=== PATIENT | male | born 1950 | race Caucasian/White ===

== ENCOUNTER 2017-03-11 13:44 | Outpatient (CLI) | payer MEDICARE, OTHER ==
[2017-03-11 14:59] LABS: Hematocrit 41.8 % (42.0-52.0); Mean Platelet Volume 7.4 fL (7.4-10.4); Red Blood Cell (RBC) Count 4.52 mill/uL (4.70-6.10); White Blood Cell (WBC) Count 5.8 thou/uL (4.8-10.8)
[2017-03-11 15:06] LABS: PTT 29.8 SEC (22.9-36.1); Prothrombin Time 13.3 SEC (12.0-14.7)
[2017-03-11 15:21] LABS: Anion Gap 10 mmol/L (10-20); BUN (Urea Nitrogen) 25 mg/dL (8.4-25.7); Calc. Creatinine Clearance 0 mL/min (70-130); Calcium 9.2 mg/dL (7.8-10.44); Carbon Dioxide 24 mmol/L (23-31); Chloride 108 mmol/L (98-107); Estimated GFR-MDRD 63
[2017-03-11 15:25] LABS: Bilirubin Negative (Negative); Blood, Urine Negative (Negative); Glucose, Urine (Dipstick) Negative (Negative); Ketone, Urine Trace mg/dL (Negative); Nitrite Negative (Negative); Protein, Urine (Dipstick) Negative (Neg-Trace)
[2017-03-11 15:29] LABS: Bacteria/HPF None Seen HPF (None Seen); Hyaline Casts/LPF 0-3 HYALINE CAST LPF (0-3 Hyaline); RBC/HPF 0-3 HPF (0-3); Squamous Epithelial 0-3 HPF (0-3)
[2017-03-11 15:47] LABS: Renal Epithelial None Seen HPF (0-3); Transitional Epithelial NONE SEEN HPF (0-3)
== END 2017-03-11 13:45 | disposition home or self-care (01) ==
LOC: LABBT 13:44
PROVIDERS: ATTEND Urology
DX: Z01.818 Encounter for other preprocedural examination (principal)
CPT/HCPCS: 80048; 81001; 85027; 85610; 85730; 87086; 93005; 93010

== ENCOUNTER 2017-03-20 07:21 | Inpatient (IN) | payer MEDICARE, OTHER ==
[2017-03-20] MEDS ORDERED: Levofloxacin 500 mg/D5W 100 ml Premix Bag ONE (08:07)
[2017-03-20] MEDS ORDERED: Fentanyl 100 MCG/2 ML VIAL ONE ×3 (09:28→11:28)
[2017-03-20] MEDS ORDERED: Promethazine HCl 25 MG/ML VIAL SLOW IVP PRN (11:09)
[2017-03-20] MEDS ORDERED: Ondansetron HCl/PF 4 MG/2 ML Vial IVP PRN ×2 (11:09→13:16)
[2017-03-20] MEDS ORDERED: Morphine Sulfate 2 MG/ML SYRINGE SLOW IVP PRN (11:09)
[2017-03-20] MEDS ORDERED: Meperidine HCl/PF 25 MG/ML VIAL SLOW IVP PRN (11:09)
[2017-03-20] MEDS ORDERED: Promethazine HCl 25 MG/ML VIAL IM PRN (11:09)
[2017-03-20] MEDS ORDERED: HYDROmorphone 2 MG/ML VIAL SLOW IVP PRN (11:09)
--- NOTE | 2017-03-20 11:20 | OP ---
DATE OF PROCEDURE: 03/20/2017 SERVICE: Urology. SURGEON: Jc Mcgowan M.D. PREOPERATIVE DIAGNOSIS: Benign prostatic hypertrophy. POSTOPERATIVE DIAGNOSIS: Benign prostatic hypertrophy. PROCEDURE PERFORMED: Transurethral vaporization of the prostate. INDICATIONS FOR PROCEDURE: Mr. Guevara is a 67-year-old white male, who is currently on Flomax and lizandro steride. He has relatively good control of the symptoms, but does not wish to remain on medications indefinitely. As such, he has elected to undergo a transurethral vaporization of prostate. Risks an d benefits of the surgery have been discussed and he has agreed to proceed forward. DESCRIPTION OF PROCEDURE: After identification of arm band and verification of consent, the patient was brought back to the operating room where he underwent general anesthesia with an LMA. He was the n placed in dorsal lithotomy position, prepped and draped in usual sterile fashion. After appropriat e time out, lubricated 26 Djiboutian obturator in outer sheath was placed through the urethra after dilat ing the meatus with Kelly sounds. The obturator was removed leaving the outer sheath in place an d the gyrus bipolar button was inserted through with the resectoscope through the outer sheath. Visu alization of the bladder and prostate did not reveal any injuries from the screen printing machine operator helper placement. The b ladder appeared unremarkable. Both ureters were in their orthotopic location. The ureters were morales ed medial and distal to their location for easier inspection later with coag function. Vaporization was begun on the lateral lobes and the median lobe of the prostate to the verumontanum. The vaporiza tion cutting function was used to vaporize all the tissue circumferentially until there was a wide op en prostatic fossa. The coagulation was used to extensively to cauterize any bleeding until the pros gary was totally hemostatic. The bladder neck was taken down at 5 and 7 o'clock to open up the bladd er neck and the intervening tissue that was exposed was vaporized using the cutting function. Upon f inal inspection, there was excellent hemostasis after cauterizing all bleeders. The resection was no t carried past the verumontanum. There did not appear to be any sphincteric or striated muscle. Car e was taken not to perform vaporization near the trigone. I felt satisfied with the vaporization and the prostate was wide open. Both ureters were in their orthotopic location unharmed. There were no chips to evacuate as the vaporization was carried out. The bladder was left full and the resectosco pe removed. A 22-Djiboutian three-way Dwyer catheter with 30 mL balloon was inserted with ease into the bladder, the balloon filled with sterile water and connected to a slow CBI. This catheter was secure d with a StatLock. Patient then awakened and taken to PACU for recovery in stable condition. COMPLICATIONS: None. ESTIMATED BLOOD LOSS: Minimal. RETAINED TUBES AND DRAINS: A 22-Djiboutian 3-way Dwyer catheter with 30 mL of sterile water in the ballo on. SPECIMENS: None. DISPOSITION: Patient will go to recovery and then be kept for 23-hour observation. He can undergo a voiding trial tomorrow and probably be discharged with his followup and handled on an outpatient bas is.
[2017-03-20] MEDS ORDERED: diphenhydrAMINE 25 MG CAP PO PRN (13:16)
[2017-03-20] MEDS ORDERED: traMADol HCl 50 MG TAB PO PRN (13:16)
[2017-03-20] MEDS ORDERED: hydrALAZINE 20 MG/ML VIAL SLOW IVP PRN (13:16)
[2017-03-20] MEDS ORDERED: Hyoscyamine Sulfate SL 0.125 mg Tablet SL PRN (13:16)
[2017-03-20] MEDS ORDERED: Oxybutynin 5 MG TAB PO PRN (13:16)
[2017-03-20] MEDS ORDERED: Mag-Al 1200 mg/1200 mg/30 ML UDCUP PO PRN (13:16)
[2017-03-20] MEDS ORDERED: Morphine 4 MG/ML VIAL SLOW IVP PRN (13:45)
[2017-03-20] MEDS ORDERED: Morphine 2 mg/2ml in 0.9% NaCl PF SYRINGE SLOW IVP PRN (13:45)
[2017-03-20] MEDS: traMADol HCl 50 MG TAB PO PRN ×2 (14:15→19:44)
[2017-03-20 17:00] VITALS: BMI 26.4
[2017-03-20] MEDS ORDERED: Dexamethasone 20 MG/5 ML VIAL ONE (17:24)
[2017-03-20] MEDS ORDERED: Propofol 200 MG/20 ML VIAL ONE (17:24)
[2017-03-20] MEDS ORDERED: Glycopyrrolate 0.2 MG/ML 5 ML SYRINGE ONE (17:24)
[2017-03-20] MEDS ORDERED: Lidocaine 1% PF 5 ML VIAL ONE (17:24)
[2017-03-20] MEDS ORDERED: Ondansetron HCl/PF 4 MG/2 ML Vial ONE (17:24)
[2017-03-20] MEDS ORDERED: Atenolol 25 MG TAB PO SCH (21:00)
[2017-03-20] MEDS ORDERED: FENOFIBRATE MICRONIZED 200 MG PO SCH ×2 (21:00)
[2017-03-20] MEDS ORDERED: Melatonin 3 MG TAB PO SCH (21:15)
[2017-03-20] MEDS: Docusate 100 MG CAP PO SCH (21:17)
[2017-03-20] MEDS: Venlafaxine HCl 25 MG TAB PO SCH (21:17)
[2017-03-21 05:38] LABS: #Basophils 0.1 thou/uL (0.0-0.2); #Eosinphils 0.2 thou/uL (0.0-0.7); #Lymphocytes 1.7 thou/uL (1.20-3.40); #Monocytes 0.9 thou/uL (0.11-0.59); %Basophils 0.7 % (0.0-1.0); %Eosinophils 2.2 % (0.0-10.0); %Monocytes 10.3 % (0.0-10.0); Hematocrit 38.4 % (42.0-52.0); Mean Platelet Volume 7.2 fL (7.4-10.4); Red Blood Cell (RBC) Count 4.09 mill/uL (4.70-6.10); White Blood Cell (WBC) Count 8.9 thou/uL (4.8-10.8)
[2017-03-21 06:12] LABS: Anion Gap 9 mmol/L (10-20); BUN (Urea Nitrogen) 16 mg/dL (8.4-25.7); Calc. Creatinine Clearance 0 mL/min (70-130); Calcium 9.2 mg/dL (7.8-10.44); Carbon Dioxide 25 mmol/L (23-31); Chloride 105 mmol/L (98-107); Estimated GFR-MDRD 67
[2017-03-21] MEDS: Venlafaxine HCl 25 MG TAB PO SCH (08:38)
[2017-03-21] MEDS: Docusate 100 MG CAP PO SCH (08:38)
[2017-03-21] MEDS ORDERED: Amlodipine 5 mg/Benazepril 10 mg CAP PO SCH (09:00)
[2017-03-21] MEDS ORDERED: Non-Formulary Item 1 EACH (Amlodipine Besylate/Benazepril [Amlodipine Besylate/Benazepril PO SCH (09:00)
[2017-03-21] MEDS: Phenazopyridine HCl 97.5 MG TABLET PO SCH ×2 (11:57)
[2017-03-21 12:32] VITALS: BP 157/89; TEMP 97.8
--- NOTE | 2017-03-21 15:37 | PRG ---
DATE OF SERVICE: 03/21/2017 SUBJECTIVE: The patient states he is feeling fine. He has been up out of bed. He has not had much pain. His CBI has been turned off this morning and his urine is very clear. He denies any bladder s pasms, fevers or chills. OBJECTIVE: VITAL SIGNS: Temperature 97.8, pulse 49, respirations 17, blood pressure 157/89, saturation 97% on r oom air. GENERAL: No apparent distress, communicative and alert. CARDIOVASCULAR: Sinus bradycardia with normal rhythm. CHEST: Clear. ABDOMENK: Soft, nontender, nondistended, positive bowel sounds. EXTREMITIES: No clubbing, cyanosis, or edema. GENITOURINARY: Dwyer catheter is in place. Secured with clear yellow urine in the CBI off. Dwyer c atheter was removed. LABORATORY DATA: On laboratory evaluation, a full set of labs in the [facility] system, which I have r eviewed. Of note, the patient's white count is 8.9 with hemoglobin of 13.2. Creatinine is 1.1 with potassium of 3.4. Remainder of labs are in the [facility] system. ASSESSMENT AND PLAN: A 67-year-old white male with BPH and obstruction, status post transurethral va porization of his prostate postoperative day #1. He has some bradycardia, but is asymptomatic, menta ting well, has no dizziness or evidence of hypotension. I think he should be fine for him to go home , but I have told him he should probably follow up with his primary care physician for further evalua tion. From my standpoint, I went over his discharge instructions including activity limitations and his discharge medications. I will plan to see him back in 1 week for a postop check.
[2017-03-21] MEDS ORDERED: Melatonin 3 MG TAB PO SCH (21:00)
== END 2017-03-21 14:44 | disposition home or self-care (01) | DRG 713 ==
LOC: SDC 07:21 → SJJU 13:11
PROVIDERS: ADMIT Urology; ATTEND Urology
PROC: 0V507ZZ Destruction of Prostate, Via Natural or Artificial Opening (ICD-10-PCS; principal; 2017-03-20)
DX: N40.1 Benign prostatic hyperplasia with lower urinary tract symptoms (principal); N13.8 Other obstructive and reflux uropathy; I10 Essential (primary) hypertension; R00.1 Bradycardia, unspecified; E78.5 Hyperlipidemia, unspecified; Z87.891 Personal history of nicotine dependence
CPT/HCPCS: 36415; 80048; 85025; J1100; J1956; J2001; J2405; J2704; J3010

== ENCOUNTER 2017-08-11 13:37 | Outpatient (CLI) | payer MEDICARE, OTHER | END 2017-08-11 13:38 | disposition home or self-care (01) | LOC: BICCT 13:37 | PROVIDERS: ATTEND Family Medicine Sports Medicine | DX: M54.9 Dorsalgia, unspecified (principal); M48.061 Spinal stenosis, lumbar region without neurogenic claudication; Z98.1 Arthrodesis status | CPT/HCPCS: 72131 ==

== ENCOUNTER 2018-03-19 08:01 | Outpatient (CLI) | payer MEDICARE, OTHER ==
[2018-03-19] MEDS ORDERED: ISOVUE-370 76%-LOCM 1 ML ONE (10:48)
--- NOTE | 2018-03-19 10:57 | CT ---
CT ABDOMEN WITH CONTRAST CT PELVIS WITH CONTRAST: DATE: 03-19-18 TIME: 9:00 A.M. HISTORY: 68-year-old male with R30.0 dysuria, and R10.30 lower abdominal pain. COMPARISON: None TECHNIQUE: IV injection of iodinated contrast media: 70 ml of Isovue 370 Oral contrast media: Administered FINDINGS: No pneumoperitoneum, ascites, or pleural effusions. No consolidation at lung bases. Midline laminecto my defects, bilateral pedicle screws, and posterior onlay bone graft fusion, at multiple levels in th e lumbar spine. Cholecystectomy clips in the gallbladder fossa. Approximately 2.5 cm hepatic cyst in hepatic segment 2 of the left lobe of the liver. The liver is otherwise normal. No abdominal aortic a neurysm. Short, normal appendix. Sigmoid colonic diverticulosis without diverticulitis. No small kg l dilation. Two small calculi in right renal lower pole calices, on the order of 0.5 cm in size each. At least one tiny calculus in left renal upper pole, approximately 0.2 cm. No evidence of pyelonephr itis. No moderate sized or large solid or cystic renal mass. No hydronephrosis. Normal pancreas, sple en, and adrenals. No intrapelvic or intraabdominal suspicious lymphadenopathy. No gross pathology of the urinary bladder identified. IMPRESSION: 1. No acute findings. 2. Bilateral mild nephrolithiasis with a few renal calculi, a few millimeters in size each. 3. Extensive post-surgical changes of the lumbar spine. 4. Status post cholecystectomy. YESENIA Wong POS: BEL
== END 2018-03-19 08:02 | disposition home or self-care (01) ==
LOC: BICCT 08:01
PROVIDERS: ATTEND Physician Assistant
DX: R10.30 Lower abdominal pain, unspecified (principal); R30.0 Dysuria; N20.0 Calculus of kidney; Z90.49 Acquired absence of other specified parts of digestive tract; Z98.890 Other specified postprocedural states
CPT/HCPCS: 74177

== ENCOUNTER 2019-03-04 10:43 | Outpatient (CLI) | payer MEDICARE, OTHER ==
--- NOTE | 2019-03-04 11:30 | CT ---
ABDOMEN CT WITHOUT CONTRAST PELVIC CT WITHOUT CONTRAST: HISTORY: Renal calculi. Gross hematuria. Nephrolithiasis. COMPARISON: None. CORRELATION: Abdomen and pelvis CT 03/19/2018. FINDINGS: Abdomen CT: Lung bases:No suspicious masses or consolidation. Heart size: Normal heart size. No significant pericardial fluid. Aorta: Normal caliber. No periaortic fat stranding. Solid organs: Limited evaluation due to lack of intravenous contrast administration. Stable 2.2 x 2.9 cm left hepatic lobe cyst. Grossly no solid organ abnormality. Lymph nodes: No gastrohepatic, retrocrural or periportal lymphadenopathy. Gallbladder: Surgically absent. Mesentery: No mass, lymphadenopathy, free air or free fluid. Kidneys: Bilateral nonobstructing intrarenal calculi measuring 3 to 4 mm. No significant perinephric fat stranding. No evidence of hydronephrosis. Left ureter does not demonstrate any evidence of hydroureter, periureteral fat stranding or ureterolithiasis. There is a solitary calculus in the prox imal right ureter measuring 0.8 cm in craniocaudal dimension. Calculus is noted at the upper aspect of L4. No additional right ureteral calculi. Alimentary canal: Limited evaluation by the lack of oral contrast. No evidence of small bowel obstruc tion. Unremarkable ileocecal junction. Diverticulosis, without evidence of diverticulitis. Appendix is not appreciated. No inflammation of the cecal apex. CT PELVIS: No mass, adenopathy, free air or free fluid. Urinary bladder: Unremarkable. Osseous structures: No acute osseous abnormalities. Lumbar fusion from L3 through S1. IMPRESSION: 1. Bilateral nonobstructing intrarenal calculi. 2. Solitary calculus in the proximal right ureter without associated obstructive uropathy. 3. Diverticulosis, without evidence of diverticulitis. Transcribed Date/Time: 03/04/2019 11:39 AM
== END 2019-03-04 10:44 | disposition home or self-care (01) ==
LOC: BICCT 10:43
PROVIDERS: ATTEND Urology
DX: N20.2 Calculus of kidney with calculus of ureter (principal); R31.0 Gross hematuria; K57.90 Diverticulosis of intestine, part unspecified, without perforation or abscess without bleeding
CPT/HCPCS: 74176

== ENCOUNTER 2019-03-18 06:27 | Outpatient (CLI) | payer MEDICARE, OTHER ==
[2019-03-18 16:21] LABS: Hemoglobin 15.3 g/dL (14.0-18.0); Mean Corpuscular HGB CONC 35.4 g/dL (32.0-36.0); Mean Corpuscular Hemoglobin 31.8 pg (27.0-31.0); Mean Corpuscular Volume 89.8 fL (78.0-98.0); Mean Platelet Volume 7.7 fL (7.4-10.4); Platelet Count 259 thou/uL (130-400); RBC Distribution Width 11.7 % (11.5-14.5); Red Blood Cell (RBC) Count 4.79 mill/uL (4.70-6.10); White Blood Cell (WBC) Count 6.9 thou/uL (4.8-10.8)
[2019-03-18 16:27] LABS: Prothrombin Time 12.9 SEC (12.0-14.7)
[2019-03-18 16:28] LABS: PTT 28.8 SEC (22.9-36.1)
[2019-03-18 16:30] LABS: Bacteria/HPF None Seen HPF (None Seen); Bilirubin Negative (Negative); Blood, Urine 3+ (Negative); Clarity Turbid (Clear); Glucose, Urine (Dipstick) Normal (Negative); Leukocyte 25 Leu/uL (Negative); Nitrite Negative (Negative); Protein, Urine (Dipstick) 50 mg/dL (Neg-Trace); RBC/HPF Greater than 50 HPF (0-3); Urobilinogen Normal mg/dL (Less than 2); WBC/HPF 21-50 HPF (0-3)
[2019-03-18 16:42] LABS: Anion Gap 15 mmol/L (10-20); BUN (Urea Nitrogen) 22 mg/dL (8.4-25.7); Calc. Creatinine Clearance 0 mL/min (70-130); Calcium 9.9 mg/dL (7.8-10.44); Carbon Dioxide 28 mmol/L (23-31); Chloride 100 mmol/L (98-107); Estimated GFR-MDRD 59; Glucose 121 mg/dL (80-115); Potassium 3.6 mmol/L (3.5-5.1); Sodium 139 mmol/L (136-145)
--- NOTE | 2019-03-19 17:57 | EKG ---
Test Reason : Blood Pressure : / mmHG Vent. Rate : 065 BPM Atrial Rate : 065 BPM P-R Int : 160 ms QRS Dur : 094 ms QT Int : 404 ms P-R-T Axes : 077 020 045 degrees QTc Int : 420 ms Normal sinus rhythm Normal ECG When compared with ECG of 11-MAR-2017 14:11, Nonspecific T wave abnormality now evident in Lateral leads Confirmed by Paulo MATUTE ([id number]) on 03/19/2019 5:57:16 PM Referred By: MIKEL Confirmed By:Paulo MATUTE
== END 2019-03-18 06:28 | disposition home or self-care (01) ==
LOC: LABBT 06:27
PROVIDERS: ATTEND Urology
DX: Z01.812 Encounter for preprocedural laboratory examination (principal); N20.0 Calculus of kidney
CPT/HCPCS: 80048; 81001; 85027; 85610; 85730; 87086; 93005; 93010

== ENCOUNTER 2019-03-25 10:48 | Day surgery (SDC) | payer MEDICARE, OTHER ==
[2019-03-18 15:19] VITALS: BMI 27.1
[2019-03-25] MEDS ORDERED: Iothalamate Meglumine 60% 50 ML VIAL FS ONE (13:40)
[2019-03-25] MEDS ORDERED: Dexamethasone 10 MG/ML VIAL ONE (13:47)
[2019-03-25] MEDS ORDERED: Ondansetron PF 4 MG/2 ML Vial ONE (13:47)
[2019-03-25] MEDS ORDERED: PROPOFOL 200 MG/20 ML VIAL ONE (13:47)
[2019-03-25] MEDS ORDERED: ePHEDrine/0.9% NaCl/PF SYRINGE 50 mg/10 ml ONE (13:47)
[2019-03-25] MEDS ORDERED: Lidocaine 1% PF 5 ML VIAL ONE (13:47)
[2019-03-25] MEDS ORDERED: PHENYLEPHRINE-NS 100 MCG/ML 10 ML SYRINGE ONE (13:47)
[2019-03-25] MEDS ORDERED: Levofloxacin 500 mg/D5W 100 ml Premix Bag ONE (13:57)
[2019-03-25] MEDS ORDERED: Fentanyl 100 MCG/2 ML VIAL ONE (14:16)
[2019-03-25] MEDS ORDERED: Lidocaine 2% Jelly 5 ML TUBE ONE (14:16)
[2019-03-25] MEDS ORDERED: HYDROcodone/Acetaminophen 5/325 mg Tablet ONE (16:31)
--- NOTE | 2019-03-25 18:40 | OP ---
DATE OF PROCEDURE: 03/25/2019 SERVICES: Urology. PREOPERATIVE DIAGNOSIS: Right ureteral stone. POSTOPERATIVE DIAGNOSES: Right renal stone, left ureteral stricture, and bladder stone. PROCEDURE PERFORMED: Cystolitholapaxy, right ureteroscopy, laser lithotripsy, basket extraction of stone, placement of a right ureteral stent, left ureteral dilation with left ureteral stent placement, and bilateral retrograde pyelogram. INDICATION FOR PROCEDURE: Mr. Guevara is a 69-year-old white male, who presented to me with a history of BPH. He had undergone a TURP in the past, but he did have stones. He ended up with a right ureteral stone measuring 8 mm. We discussed ureteroscopy with removal and after discussion of risks and benefits, he agreed to proceed forward. Of note, before the surgery, he did tell me he was having some left flank discomfort and thinks he might be passing a stone on the left side. The patient elected to have a retrograde pyelogram done on the left to evaluate for any potential problems. All risks and benefits of the surgery were discussed and he has agreed to proceed forward. DESCRIPTION OF PROCEDURE: After identification of armband and verification of consent, the patient was brought back to the operating room. He underwent general anesthesia with an LMA. He was placed in dorsal lithotomy position and prepped and draped in usual sterile fashion. After appropriate time-out, a lubricated 22-Serbian rigid cystoscope was introduced per urethra into the bladder. The prostate was wide open as previously he had had a TURP. However, there was a stone adherent to the bladder mucosa at the right aspect of the bladder neck. It is unclear if this was a bladder stone that formed on its own or if it was the stone that had passed from the right ureter and it had become stuck on the bladder mucosa and become attached there. In other case, a 273 micron ball-tip laser fiber was used to fragment the stone into small pieces and then evacuate out for stone analysis. The right ureter was then cannulated with a 0.035 Sensor wire up to the level of renal pelvis. The dual-lumen catheter was advanced in over the Sensor wire and a retrograde pyelogram performed, which demonstrated a normal caliber ureter without any evidence of significant hydronephrosis. A Super Stiff wire was then passed to the second lumen up to the level of the renal pelvis and then the dual-lumen removed. The Sensor wires affixed to the drapes as a safety wire. A 11/13-Serbian ureteral access sheath was then advanced over the Super Stiff wire up to the level of proximal ureter. The inner cannula and Super Stiff wire were then removed and the outer sheath left in place along with the Sensor wire in place as a safety wire. A flexible digital ureteroscope was then passed into the renal pelvis through the proximal ureter. No stone was encountered in the ureter. There were 2 to 3 larger stones noted in the lower pole of the right kidney. It is unclear if this was the 8-mm stone that originally become impacted or if it was due to separate stones. In other case, a full pyeloscopy was performed. There was a small tiny stone in the upper pole, which was removed with basket extraction. The lower pole stones were fragmented using the same 273 micron ball-tip laser fiber and then the pieces extracted using 1.9-Serbian ZeroTip Nitinol basket. Upon completion, there were no stone fragments remaining that were over a millimeter in size. There was a significant amount of dust. This was left in place and pull-back ureteroscopy was employed. No additional stones were found within the right ureter. The ureteroscope was then removed and the cystoscope was then backloaded over the Sensor wire back in the bladder. A 6 x 26 double-J stent was advanced over the Sensor wire up to the level of renal pelvis and the wire removed leaving a good curl in the kidney and a good curl in the bladder. A string was left attached to the right stent and then the cystoscope was brought in alongside the string back into the bladder and attention turned to the left ureteral orifice. Using a Sensor wire to feed into the left ureter, the dual-lumen catheter was advanced over the Sensor wire into the distal ureter and a retrograde pyelogram performed, which demonstrated a slender narrow caliber distal ureter with a hydronephrotic ureter and hydronephrosis within the kidney. This did appear long-standing and not new, although this was not present on the CT scan, which had been done, which diagnosed the patient's right-sided ureteral stone. As such, the dual-lumen catheter and the Sensor wire were removed and a ureteroscope was brought in the string into the distal ureter, where a stricture was encountered in the distal ureter. Using a Sensor wire, cannulated through the ureteroscope. This was passed through the lumen of the stricture into the renal pelvis. Using the ureteroscope, the stricture was gently dilated and stretched open, which did cause full-thickness mucosal splitting of the distal ureter. However, the ureter was then wide open at this point. The ureter proximal to this was extremely dilated, indicating that the hydronephrosis had been standing for at least a few weeks. It is unclear how the stricture had formed, there did not appear to be any malignancy. There were no stone fragments. As such, I felt comfortable that this had alleviated the problem, but the patient will require a stent on this side secondary to dilation of the stricture. Therefore, the ureteroscope was removed leaving the Sensor wire in place as a safety wire. A cystoscope was backloaded over the Sensor wire back into the bladder and a 6 x 26 double-J stent with no string attached was advanced over the Sensor wire up to the level of renal pelvis. The wire was then removed leaving a good curl in the kidney and a good curl in the bladder. The bladder was then emptied and the cystoscope removed. Final fluoro shot demonstrated both stents in place. However, the right stent has a string emanating from the penis. The cystoscope was then removed. The string was affixed to the patient's penis with an OpSite. He was then awakened, taken to PACU for recovery in stable condition. COMPLICATIONS: None. ESTIMATED BLOOD LOSS: Minimal. RETAINED TUBES AND DRAINS: Bilateral 6 x 26 double-J stents with a string attached to the right stent emanating from the patient's penis. DISPOSITION: The patient will be discharged home and follow up with me in approximately 3 weeks for a cystoscopy and left-sided stent removal. He will be instructed to remove his right stent by gently pulling the string until the stent is completely removed. We will then follow up with ultrasound in the future to ensure that the left stricture is completely treated. Job ID: [id number]
== END 2019-03-25 18:45 | disposition home or self-care (01) ==
LOC: SDC 10:48
PROVIDERS: ATTEND Urology
PROC: 0TCB8ZZ Extirpation of Matter from Bladder, Via Natural or Artificial Opening Endoscopic (ICD-10-PCS; principal; 2019-03-25)
PROC: 0TF38ZZ Fragmentation in Right Kidney Pelvis, Via Natural or Artificial Opening Endoscopic (ICD-10-PCS; 2019-03-25)
PROC: 0T788DZ Dilation of Bilateral Ureters with Intraluminal Device, Via Natural or Artificial Opening Endoscopic (ICD-10-PCS; 2019-03-25)
DX: N20.0 Calculus of kidney (principal); N13.1 Hydronephrosis with ureteral stricture, not elsewhere classified; N21.0 Calculus in bladder; N40.1 Benign prostatic hyperplasia with lower urinary tract symptoms; R35.0 Frequency of micturition; N39.498 Other specified urinary incontinence; I10 Essential (primary) hypertension; E78.5 Hyperlipidemia, unspecified; F32.9 Major depressive disorder, single episode, unspecified; F43.10 Post-traumatic stress disorder, unspecified; H91.90 Unspecified hearing loss, unspecified ear; Z87.891 Personal history of nicotine dependence; Z79.899 Other long term (current) drug therapy; Z88.0 Allergy status to penicillin; Z97.4 Presence of external hearing-aid
CPT/HCPCS: 76000; 82365; 88300; J1100; J1956; J2001; J2405; J2704; J3010

== ENCOUNTER 2019-04-27 14:45 | Outpatient (CLI) | payer MEDICARE, OTHER ==
--- NOTE | 2019-04-27 15:23 | ULT ---
Exam: Bilateral renal ultrasound HISTORY: Renal calculi COMPARISON: None FINDINGS: Right kidney: Normal cortical echotexture. No hydronephrosis. Right kidney measurements: 12.3 x 6.6 x 7.1 cm. Left kidney: Normal cortical echotexture. Mild hydronephrosis Left kidney measurements 10.9 x 6.2 x 7.2 cm. Urinary bladder: Normal mucosa. 263 mL of bladder volume. IMPRESSION: Mild left-sided hydronephrosis.
== END 2019-04-27 14:46 | disposition home or self-care (01) ==
LOC: BICULT 14:45
PROVIDERS: ATTEND Urology
DX: N20.0 Calculus of kidney (principal); N13.30 Unspecified hydronephrosis
CPT/HCPCS: 76770; 81001; 87086

== ENCOUNTER 2019-04-28 11:07 | Outpatient (CLI) | payer MEDICARE, OTHER ==
--- NOTE | 2019-04-28 13:41 | CT ---
CT ABDOMEN NONCONTRAST CT PELVIS NONCONTRAST: (urolithiasis protocol) DATE: 04/28/2019. HISTORY: A 69-year-old male with calculus of kidney. Left-sided hydronephrosis demonstrated on yesterday's ultrasound. COMPARISON: CT of 03/04/2019. TECHNIQUE: IV injection of iodinated contrast media: none Oral contrast media: none FINDINGS: Other than for urolithiasis, the lack of IV and oral contrast limits the evaluation. There is mild left hydronephrosis, with the collecting system dilation greater than it was on 019. There is also left hydroureter, with the mild dilation of the entire left ureter slightly great er than previously. Furthermore, there is a greater degree of fat stranding representing edema aroun d the distal left ureter from approximately the S1 level down to the UVJ. However, no obstructing calculus is visualized in the left ureter or UVJ. The bladder is distended but otherwise normal, within the limitations of a noncontrast scan. There is a small, approximately 4 x 2 x 5 mm calculus in a left renal lower pole calyx. There is a punctate, 1 or 2 mm calculus at a left renal upper pole calyx. The calculus previously demonstrated in the contralateral proximal right ureter is no longer present. There is no right-sided hydronephrosis. Again noted is the cyst in the left lobe of the liver. Metallic hardware throughout the lumbar spine causes streak artifact, obscuring portions of the bilat eral ureters. No small bowel dilation, ascites, or pneumoperitoneum. No pleural effusion. Within the limitations of a noncontrast scan, no gross abnormality identified involving the pancreas, adrenals, or spleen, or right kidney. No abdominal aortic aneurysm. IMPRESSION: 1. A new finding of mild left hydroureteronephrosis, but without a definite obstructing ureteral nam culus identified. One possible explanation is a recently passed left ureteral calculus. 2. Consider retrograde pyelogram to rule out a small neoplasm at the left ureterovesical junction th at may be causing this hydroureteronephrosis. 3. Mild nephrolithiasis consisting of at least 2 left renal calculi. 4. Mild left distal periureteral edema. YESENIA Wong POS: BEL
== END 2019-04-28 11:08 | disposition home or self-care (01) ==
LOC: CT 11:07
PROVIDERS: ATTEND Urology
DX: N13.2 Hydronephrosis with renal and ureteral calculous obstruction (principal); N28.89 Other specified disorders of kidney and ureter
CPT/HCPCS: 74176

== ENCOUNTER 2019-05-12 08:43 | Outpatient (CLI) | payer MEDICARE, OTHER ==
[2019-05-12 15:00] LABS: Hemoglobin 14.5 g/dL (14.0-18.0); Mean Corpuscular HGB CONC 34.8 g/dL (32.0-36.0); Mean Corpuscular Hemoglobin 31.3 pg (27.0-31.0); Mean Platelet Volume 7.5 fL (7.4-10.4); Platelet Count 241 thou/uL (130-400); RBC Distribution Width 11.3 % (11.5-14.5); Red Blood Cell (RBC) Count 4.64 mill/uL (4.70-6.10); White Blood Cell (WBC) Count 6.5 thou/uL (4.8-10.8)
[2019-05-12 15:01] LABS: Bacteria/HPF None Seen HPF (None Seen); Bilirubin Negative (Negative); Blood, Urine Negative (Negative); Clarity Clear (Clear); Glucose, Urine (Dipstick) Normal (Negative); Leukocyte 75 Leu/uL (Negative); Nitrite Negative (Negative); Protein, Urine (Dipstick) 20 mg/dL (Neg-Trace); Squamous Epithelial 0-3 HPF (0-3); Urobilinogen Normal mg/dL (Less than 2)
[2019-05-12 15:08] LABS: PTT 31.7 SEC (22.9-36.1); Prothrombin Time 13.6 SEC (12.0-14.7)
[2019-05-12 15:19] LABS: Anion Gap 13 mmol/L (10-20); BUN (Urea Nitrogen) 25 mg/dL (8.4-25.7); Calc. Creatinine Clearance 0 mL/min (70-130); Calcium 8.9 mg/dL (7.8-10.44); Carbon Dioxide 27 mmol/L (23-31); Chloride 104 mmol/L (98-107); Estimated GFR-MDRD 46; Glucose 155 mg/dL (80-115); Potassium 4.2 mmol/L (3.5-5.1); Sodium 140 mmol/L (136-145)
== END 2019-05-12 08:44 | disposition home or self-care (01) ==
LOC: LABBT 08:43
PROVIDERS: ATTEND Urology
DX: Z01.818 Encounter for other preprocedural examination (principal); N20.0 Calculus of kidney; N13.5 Crossing vessel and stricture of ureter without hydronephrosis; N40.1 Benign prostatic hyperplasia with lower urinary tract symptoms; N39.41 Urge incontinence; N52.9 Male erectile dysfunction, unspecified; G89.4 Chronic pain syndrome
CPT/HCPCS: 80048; 81001; 85027; 85610; 85730; 87086; 93005; 93010

== ENCOUNTER 2019-05-20 07:41 | Day surgery (SDC) | payer MEDICARE, OTHER ==
[2019-05-12 14:01] VITALS: BMI 27.1
[2019-05-20] MEDS ORDERED: Levofloxacin 500 mg/D5W 100 ml Premix Bag ONE (09:09)
[2019-05-20] MEDS ORDERED: Iothalamate Meglumine 60% 50 ML VIAL FS ONE (09:48)
[2019-05-20] MEDS ORDERED: B & O ONE (09:48)
[2019-05-20] MEDS ORDERED: Fentanyl 100 MCG/2 ML VIAL ONE (09:54)
[2019-05-20] MEDS ORDERED: Phenazopyridine HCl 97.5 MG TABLET ONE (11:02)
[2019-05-20] MEDS ORDERED: Oxybutynin 5 MG TAB ONE (11:02)
[2019-05-20] MEDS ORDERED: HYDROcodone/Acetaminophen 5/325 mg Tablet ONE (11:12)
[2019-05-20] MEDS ORDERED: Ondansetron PF 4 MG/2 ML Vial ONE (11:13)
[2019-05-20] MEDS ORDERED: Ketorolac Tromethamine 30 MG/ML VIAL ONE (11:13)
[2019-05-20] MEDS ORDERED: PROPOFOL 200 MG/20 ML VIAL ONE (11:13)
[2019-05-20] MEDS ORDERED: Lidocaine 1% PF 5 ML VIAL ONE (11:13)
--- NOTE | 2019-05-20 11:13 | RAD ---
RETROGRADE PYELOGRAM: Date: 05/20/2019 HISTORY: Stent placement. FINDINGS: These are 2 films which show a wire placed within the left ureter. These images do not include the st ent. IMPRESSION: Wire placement with the distal end of the wire within the upper pole paula. These images do not inclu de stent placement. POS: PETRA
--- NOTE | 2019-05-20 11:35 | OP ---
DATE OF PROCEDURE: 05/20/2019 SERVICE: Urology. PREOPERATIVE DIAGNOSIS: Left ureteral stricture. POSTOPERATIVE DIAGNOSIS: Left ureteral stricture. PROCEDURES PERFORMED: 1. Left ureteroscopy. 2. Retrograde pyelogram. 3. Left ureteral balloon dilation under direct vision. 4. Placement of a 6 x 26 double-J stent. INDICATION FOR PROCEDURE: Mr. Guevara is a 69-year-old white male who initially presented to al with right ureteral stones. He had complained of left flank pain at the same time, so during his ureteroscopy on the right side, we elected to perform a left retrograde pyelogram, which demonstrated hydronephrosis on that side. Ureteroscopy confirmed a ureteral stricture. This was dilated informally just by navigating through the strictured area with the ureteroscope. A stent was left in place and then removed after 2 weeks. Unfortunately, the patient had a stricture recurrence with hydronephrosis again on postoperative ultrasound. I recommended we come back to the operating room and perform a formal balloon dilation of the ureteral stricture. Risks and benefits of the surgery were discussed and he has agreed to proceed forward. DESCRIPTION OF PROCEDURE: After identification of armband and verification of consent, the patient was brought back to the operating room, where he underwent general anesthesia with an LMA. He was placed in dorsal lithotomy position and prepped and draped in the usual sterile fashion. After appropriate time-out, a lubricated 22-Sierra Leonean rigid cystoscope was introduced per urethra into the bladder. The prostate was wide open, status post TURP. Both ureters were in the orthotopic location. The left ureteral orifice was cannulated with a 0.035 Sensor wire up to the level of renal pelvis. The cystoscope was then removed and the wire affixed to the drapes as a safety wire. A semi-rigid ureteroscope was then passed alongside the Sensor wire into the bladder and then into the left ureteral orifice. After approximately 4 to 5 cm up, the stricture was encountered as a significant narrowing in the lumen and caliber of the ureter, probably estimated around 3- to 4-Sierra Leonean in diameter. This was marked fluoroscopically by placing the tip of the ureteroscope to the distal end of the stricture. A retrograde pyelogram was performed through the ureteroscope, which demonstrated the stricture was probably around 1.5 cm in length. The ureteroscope was then withdrawn and a balloon dilator was advanced until the radiopaque markers spanned in distance of the stricture. The balloon was inflated up to 20 atmospheres for a diameter of 15-Sierra Leonean and 6 cm in length. This was left in place, inflated for approximately 30 seconds and then deflated and then taken out. The ureteroscope was then advanced alongside the Sensor wire again back into the distal ureter and the area of dilation was inspected and found to be completely wide open. Ureteroscopy was carried out up to the mid ureter, where another retrograde pyelogram was performed to evaluate the remainder of the ureter, which appeared dilated and wide open with no evidence of further stricture disease. The ureteroscope was then withdrawn and a cystoscope was back-loaded over the Sensor wire back into the bladder. A 6 x 26 double-J stent was advanced over the Sensor wire up to the level of renal pelvis. The wire removed, leaving a good curl in the kidney and a good curl in the bladder. The bladder was then emptied and the cystoscope removed. There was no string left attached to the stent. The patient was then taken out of positioning, awakened, and taken to PACU for recovery in stable condition. Of note, the patient did get a B and O suppository prior to being awakened from anesthesia. COMPLICATIONS: None. ESTIMATED BLOOD LOSS: Minimal. RETAINED TUBES AND DRAINS: A 6 x 26 double-J stent on the left. SPECIMENS: None. DISPOSITION: The patient will be discharged home and follow up with me in 2 weeks for cystoscopy and stent removal. Job ID: [id number]
== END 2019-05-20 13:45 | disposition home or self-care (01) ==
LOC: SDC 07:41
PROVIDERS: ATTEND Urology
PROC: 0T778DZ Dilation of Left Ureter with Intraluminal Device, Via Natural or Artificial Opening Endoscopic (ICD-10-PCS; principal; 2019-05-20)
DX: N13.2 Hydronephrosis with renal and ureteral calculous obstruction (principal); N40.1 Benign prostatic hyperplasia with lower urinary tract symptoms; R39.12 Poor urinary stream; N39.41 Urge incontinence; N52.9 Male erectile dysfunction, unspecified; I10 Essential (primary) hypertension; E78.5 Hyperlipidemia, unspecified; F43.10 Post-traumatic stress disorder, unspecified; F32.9 Major depressive disorder, single episode, unspecified; Z79.899 Other long term (current) drug therapy; Z87.891 Personal history of nicotine dependence; Z88.0 Allergy status to penicillin
CPT/HCPCS: 52332; 74420; C1769; J1885; J1956; J2001; J2405; J2704; J3010

== ENCOUNTER 2019-07-07 08:55 | Outpatient (CLI) | payer MEDICARE, OTHER ==
--- NOTE | 2019-07-07 09:28 | ULT ---
Exam: Bilateral renal ultrasound HISTORY: Renal calculi. Previous hydronephrosis. COMPARISON: 04/27/2019 FINDINGS: Right kidney: Normal cortical echotexture. No hydronephrosis. Right kidney measurements: 11.2 x 6.0 x 7.1 cm. Left kidney: Progression of hydronephrosis. Currently there is moderate hydronephrosis. Left kidney measurements 5.7 x 10.3 x 6.5 cm. Urinary bladder: Limited evaluation mucosa due to inadequate distention. 80 mL prevoid volume. 10 mL post void volume. IMPRESSION: 1. Progression of left-sided hydronephrosis. Currently, moderate left-sided hydronephrosis. Hydroneph rosis does not resolve upon voiding
== END 2019-07-07 08:56 | disposition home or self-care (01) ==
LOC: BICULT 08:55
PROVIDERS: ATTEND Urology
DX: N20.0 Calculus of kidney (principal); N13.5 Crossing vessel and stricture of ureter without hydronephrosis; N13.30 Unspecified hydronephrosis
CPT/HCPCS: 76770

== ENCOUNTER 2019-09-15 18:43 | Day surgery (SDC) | payer MEDICARE, OTHER ==
[~2019-09-15 18:43] MED LIST: Dexamethasone 20 MG/5 ML VIAL ONE; Ondansetron PF 4 MG/2 ML Vial ONE; PHENYLEPHRINE-NS 100 MCG/ML 10 ML SYRINGE ONE; PROPOFOL 200 MG/20 ML VIAL ONE; Succinylcholine Chloride 20 MG/ML 10 ml SYRINGE FS ONE; diphenhydrAMINE 50 MG/ML VIAL ONE
[2019-09-15] MEDS ORDERED: Morphine 4 MG/ML VIAL ONE (18:58)
[2019-09-15] MEDS ORDERED: Ondansetron PF 4 MG/2 ML Vial ONE (18:58)
[2019-09-15] MEDS ORDERED: Adacel (T-DAP) 0.5 ML SYRINGE ONE (19:07)
[2019-09-15 19:13] LABS: #Basophils 0.1 thou/uL (0.0-0.2); #Eosinphils 0.3 thou/uL (0.0-0.7); #Lymphocytes 2.1 thou/uL (1.20-3.40); #Monocytes 0.8 thou/uL (0.11-0.59); #Neutrophils 3.8 thou/uL (1.40-6.50); %Lymphocytes 30.2 % (21.0-51.0); %Monocytes 11.3 % (0.0-10.0); %Neutrophils 53.5 % (42.0-75.0); Mean Corpuscular HGB CONC 36.3 g/dL (32.0-36.0); Mean Corpuscular Hemoglobin 33.1 pg (27.0-31.0); Mean Corpuscular Volume 91.2 fL (78.0-98.0); Mean Platelet Volume 7.7 fL (7.4-10.4); Platelet Count 250 thou/uL (130-400); Red Blood Cell (RBC) Count 4.53 mill/uL (4.70-6.10)
[2019-09-15 19:23] LABS: PTT 25.8 sec (22.9-36.1)
[2019-09-15 19:24] LABS: Prothrombin Time 12.7 sec (12.0-14.7)
--- NOTE | 2019-09-15 19:27 | RAD ---
LEFT FOREARM TWO VIEW: 09/15/19 HISTORY: Laceration. COMPARISON: None. FINDINGS: There is a large anterolateral laceration of the proximal forearm. No underlying fracture is appreci ated. No large radiopaque foreign object. IMPRESSION: Large laceration as described. No underlying osseous abnormality. POS: HOME
[2019-09-15 19:34] LABS: ALT (SGPT) 26 U/L (8-55); AST (SGOT) 35 U/L (5-34); Albumin 4.7 g/dL (3.4-4.8); Alkaline Phosphatase 75 U/L (40-110); Anion Gap 17 mmol/L (10-20); BUN (Urea Nitrogen) 33 mg/dL (8.4-25.7); Bilirubin, Total 1.3 mg/dL (0.2-1.2); Calc. Creatinine Clearance 0 mL/min (70-130); Carbon Dioxide 24 mmol/L (23-31); Chloride 104 mmol/L (98-107); Estimated GFR-MDRD 29; Globulin 2.7 g/dL (2.4-3.5); Glucose 162 mg/dL (80-115); Potassium 3.8 mmol/L (3.5-5.1); Protein, Total 7.4 g/dL (5.8-8.1); Sodium 141 mmol/L (136-145)
[2019-09-15] MEDS ORDERED: Fentanyl 250 MCG/5 ML VIAL ONE (21:19)
[2019-09-15] MEDS ORDERED: Fentanyl 100 MCG/2 ML VIAL ONE ×2 (22:54→23:13)
[2019-09-15] MEDS ORDERED: HYDROcodone/Acetaminophen 5/325 mg Tablet ONE (23:43)
--- NOTE | 2019-09-16 00:49 | OP ---
DATE OF PROCEDURE: 09/15/2019 PROCEDURES PERFORMED: Left forearm exploration with repair of underlying muscle belly laceration. PREOPERATIVE DIAGNOSIS: Deep left dorsal forearm laceration. POSTOPERATIVE DIAGNOSIS: Deep left dorsal forearm laceration. COMPLICATIONS: None. ESTIMATED BLOOD LOSS: Minimal. MANAGER REIMBURSEMENT: Israel Abarca PA-C IMPLANTS: None. INDICATIONS: Mr. Guevara is a 69-year-old male, who has lacerated the dorsal aspect of his left forearm. He has been indicated for exploration of the wound with repair and closure. Risks have been reviewed to include infection, nerve or vascular injury, muscle injury, and others. DESCRIPTION OF PROCEDURE: Mr. Guevara was identified in the preoperative holding area. His correct extremity was marked. He was carried to the operating room. He was positioned supine. General anesthesia was induced. A multidisciplinary time-out was performed. The left upper extremity was prepped and draped in sterile fashion. We began the procedure with extension of the patient's traumatic wound. He had a 12 cm laceration of the dorsal arm. We dissected down and found the fascia was lacerated. The muscle of the extensor carpi radialis longus and muscle belly of the extensor digitorum was lacerated. We thoroughly irrigated with copious lavage. We ensured that there was no contamination. At this point, we used a 0 Vicryl suture to repair the muscle belly in a [id number] fashion. The muscle belly was well approximated. We then closed the fascia overlying the muscle belly in an interrupted fashion. Finally, we closed the skin layer. This reapproximated all injured structures. A sterile dressing was applied. The patient was placed in a cock-up splint. He was taken to the recovery room in good condition without complication. Job ID: [id number]
--- NOTE | 2019-09-18 12:06 | EKG ---
Test Reason : Blood Pressure : / mmHG Vent. Rate : 080 BPM Atrial Rate : 080 BPM P-R Int : 158 ms QRS Dur : 078 ms QT Int : 398 ms P-R-T Axes : 083 034 050 degrees QTc Int : 459 ms Normal sinus rhythm Normal ECG Confirmed by JUAQUIN CRUZ DO ([id number]), book or script editor LORNE HENDRIX ([id number] on 09/18/2019 12:06:48 PM Referred By: Confirmed By:JUAQUIN CRUZ DO
== END 2019-09-16 00:15 | disposition home or self-care (01) ==
LOC: ERS 18:43 → SDC 19:52
PROVIDERS: ATTEND Orthopaedic Surgery
PROC: 0KQB0ZZ Repair Left Lower Arm and Wrist Muscle, Open Approach (ICD-10-PCS; principal; 2019-09-15)
DX: S56.522A Laceration of other extensor muscle, fascia and tendon at forearm level, left arm, initial encounter (principal); I10 Essential (primary) hypertension; E78.00 Pure hypercholesterolemia, unspecified; Z79.899 Other long term (current) drug therapy; Z88.0 Allergy status to penicillin; W31.2XXA Contact with powered woodworking and forming machines, initial encounter
CPT/HCPCS: 80053; 85025; 85610; 85730; 90471; 90715; 93005; 96365; 96375; J0690; J1100; J1200; J2270; J2405; J2704; J3010

== ENCOUNTER 2020-07-17 10:38 | Outpatient (CLI) | payer MEDICARE, OTHER ==
[2020-07-17] MEDS ORDERED: Furosemide 40 MG/4 ML VIAL ONE (13:10)
== END 2020-07-17 10:39 | disposition home or self-care (01) ==
LOC: NM 10:38
PROVIDERS: ATTEND Urology
DX: N13.5 Crossing vessel and stricture of ureter without hydronephrosis (principal)
CPT/HCPCS: 78708; A4641; A9562; J1940

== ENCOUNTER 2020-10-13 14:13 | Emergency (ER) | payer MEDICARE, OTHER ==
[2020-10-13] MEDS ORDERED: Morphine 10 MG/ML VIAL ONE (16:17)
[2020-10-13] MEDS ORDERED: Ondansetron ODT 4 MG TAB ONE (16:17)
[2020-10-13] MEDS ORDERED: Morphine 4 MG/ML VIAL ONE ×3 (16:18→18:45)
== END 2020-10-13 20:01 | disposition home or self-care (01) ==
LOC: ERS 14:13
DX: S92.002A Unspecified fracture of left calcaneus, initial encounter for closed fracture (principal); I10 Essential (primary) hypertension; Z87.442 Personal history of urinary calculi; W11.XXXA Fall on and from ladder, initial encounter
CPT/HCPCS: 29515; 72131; 96372; 96374; 96376; J2270; Q0162

== ENCOUNTER 2020-11-29 14:39 | Outpatient (CLI) | payer MEDICARE, OTHER | END 2020-11-29 14:40 | disposition home or self-care (01) | LOC: BICCT 14:39 | PROVIDERS: ATTEND Urology | DX: N20.0 Calculus of kidney (principal) | CPT/HCPCS: 74176 ==

== ENCOUNTER 2021-04-11 12:42 | Outpatient (CLI) | payer MEDICARE | END 2021-04-11 12:43 | disposition home or self-care (01) | LOC: BICULT 12:42 | PROVIDERS: ATTEND Family Medicine | DX: R22.1 Localized swelling, mass and lump, neck (principal) | CPT/HCPCS: 76536 ==

== ENCOUNTER 2023-10-30 09:13 | Day surgery (SDC) | payer MEDICARE, OTHER ==
[2023-10-28 15:10] VITALS: BMI 28.7
[~2023-10-30 09:13] MED LIST changes: -Dexamethasone 20 MG/5 ML VIAL ONE; +EPINEPHrine 0.3 MG in Ophthalmic Irrigation Solution 500 ML IRR SCH; -Ondansetron PF 4 MG/2 ML Vial ONE; -PHENYLEPHRINE-NS 100 MCG/ML 10 ML SYRINGE ONE; -PROPOFOL 200 MG/20 ML VIAL ONE; -Succinylcholine Chloride 20 MG/ML 10 ml SYRINGE FS ONE; -diphenhydrAMINE 50 MG/ML VIAL ONE
[2023-10-30] MEDS ORDERED: PHENYLephrine 2.5% Ophth Soln 15 ml Bottle ONE (09:56)
[2023-10-30] MEDS ORDERED: Cyclopentolate 1% Opth Drop 2 ML BOT ONE (09:56)
[2023-10-30] MEDS ORDERED: Midazolam HCl 2 mg/2 ml Vial ONE (10:18)
[2023-10-30] MEDS ORDERED: fentaNYL PF 100 MCG/2 ML SYRINGE ONE (10:44)
[2023-10-30] MEDS ORDERED: Ondansetron PF 4 MG/2 ML Vial ONE ×2 (10:51→11:40)
[2023-10-30] MEDS ORDERED: PHENYLEPHRINE-NS 100 MCG/ML 10 ML SYRINGE ONE (10:56)
[2023-10-30 11:02] LABS: #Basophils 0.06 10x3/uL (0.0-0.2); %Eosinophils 6.2 % (0.0-10.0); %Lymphocytes 24.8 % (21.0-51.0); %Monocytes 13.3 % (0.0-10.0); %Neutrophils 54.4 % (42.0-75.0); Hematocrit 42.4 % (42.0-52.0); Hemoglobin 15.5 g/dL (14.0-18.0); Mean Corpuscular HGB CONC 36.6 g/dL (32.0-36.0); Mean Corpuscular Hemoglobin 32.6 pg (27.0-31.0); Mean Corpuscular Volume 89.3 fL (78.0-98.0); Mean Platelet Volume 10.1 fL (7.4-10.4); Platelet Count 185 10x3/uL (130-400); RBC Distribution Width 12.7 % (11.5-14.5); Red Blood Cell (RBC) Count 4.75 mill/uL (4.70-6.10)
[2023-10-30 11:25] LABS: Anion Gap 9 mmol/L (10-20); BUN (Urea Nitrogen) 20 mg/dL (8.4-25.7); Calc. Creatinine Clearance 73 mL/min (70-130); Calcium 8.8 mg/dL (7.8-10.44); Carbon Dioxide 27 mmol/L (23-31); Chloride 109 mmol/L (98-107); Estimated GFR 67; Glucose 144 mg/dL (83-110); Sodium 141 mmol/L (136-145)
[2023-10-30] MEDS ORDERED: Lidocaine 1% PF 5 ML VIAL ONE ×2 (11:30→11:33)
[2023-10-30] MEDS ORDERED: Lidocaine 4% PF 5 ML AMP ONE (11:33)
[2023-10-30] MEDS ORDERED: CEFAZOLIN 1 GM VIAL ONE (11:33)
[2023-10-30] MEDS ORDERED: Indocyanine Green 25 MG/10 ML VIAL ONE (11:33)
[2023-10-30] MEDS ORDERED: Maxitrol 0.1% Opth Oint 3.5 GM TUBE ONE (11:33)
[2023-10-30] MEDS ORDERED: PROPOFOL 200 MG/20 ML VIAL ONE (11:33)
[2023-10-30] MEDS ORDERED: Bupivacaine 0.75% 10 ML VIAL ONE (11:33)
[2023-10-30] MEDS ORDERED: Triamcinolone 40 MG/ML VIAL ONE (11:33)
[2023-10-30] MEDS ORDERED: hydrALAZINE 20 MG/ML VIAL ONE (12:52)
== END 2023-10-30 14:50 | disposition home or self-care (01) ==
LOC: SDC 09:13
PROVIDERS: ATTEND Ophthalmology Retina Specialist
PROC: 08T53ZZ Resection of Left Vitreous, Percutaneous Approach (ICD-10-PCS; principal; 2023-10-30)
DX: H43.822 Vitreomacular adhesion, left eye (principal); H35.372 Puckering of macula, left eye; Z79.899 Other long term (current) drug therapy; Z88.0 Allergy status to penicillin
CPT/HCPCS: 67025; 67041; 80048; 85025; 93005; J0171; J0360; J2250; J2405; 93010; J0690; J2704; J3301; J3490